=== PATIENT | male | born 1970 | race Caucasian/White ===

== ENCOUNTER → 2017-08-13 | Outpatient (CLI) | payer MEDICARE ==
[2017-08-13 10:33] LABS: BICARBONATE 23.4 MEQ/L (21.0-32.0); BLOOD UREA NITROGEN 17 MG/DL (7-18); CALCIUM 8.3 MG/DL (8.5-10.1); CHLORIDE 103 MEQ/L (98-107); CREATININE 0.89 MG/DL (0.60-1.30); GLOMERULAR FILTRATION RATE 91 ML/MIN (>89); GLUCOSE,FASTING 219 MG/DL (74-99); SODIUM (NA) 137 MEQ/L (136-145)
[2017-08-13 10:34] LABS: CHOLESTEROL 143 MG/DL (120-200)
[2017-08-13 10:39] LABS: CHOLESTEROL/ HDL RATIO 6.21 RATIO; LDL CHOLESTEROL 55 MG/DL (0-99); TRIGLYCERIDES 323 MG/DL (42-150)
[2017-08-13 16:45] LABS: HEMOGLOBIN A1C 9.3 % (4.3-6.0)
== END ==
LOC: OLAB 07:47
PROVIDERS: ATTEND Family Medicine
DX: E11.9 Type 2 diabetes mellitus without complications (principal)
CPT/HCPCS: 36415; 80048; 80061; 82043; 83036